=== PATIENT | female | born 1980 | race American Indian/Alaskan Native ===

== ENCOUNTER 2016-09-18 18:06 | Inpatient (IN) | payer BC, MEDICAID ==
--- NOTE | 2016-09-18 19:03 | ED PDOC ---
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 Intentional overdose due to suicidal thoughts. No complains now. Past Medical History Reviewed: Historical Data, Nursing Documentation, Vital Signs Vital Signs: Last Vital Signs Temp 97.8 F 09/18/16 18:10 Pulse 68 09/18/16 18:10 Resp 18 09/18/16 18:10 BP 135/80 09/18/16 18:10 Pulse Ox 98 09/18/16 18:10 - Medical History PMH: No Chronic Diseases - Surgical History Surgical History: No Surg Hx - Family History Family History: States: No Known Family Hx - Home Medications Home Medications: Ambulatory Orders Medication Instructions Recorded No Known Home Med 09/18/16 - Allergies Allergies/Adverse Reactions: Allergies Allergy/AdvReac Type Severity Reaction Status Date / Time No Known Allergies Allergy Verified 09/18/16 18:59 Review of Systems ROS Statement: Except As Marked, All Systems Reviewed And Found Negative Constitutional: Negative for: Fever Cardiovascular: Negative for: Chest Pain Respiratory: Negative for: Cough Gastrointestinal: Negative for: Abdominal Pain Genitourinary Female: Negative for: Dysuria Physical Exam - Reviewed Nursing Documentation Reviewed: Yes Vital Signs Reviewed: Yes - Physical Exam Appears: Positive for: Well, Non-toxic, No Acute Distress Skin: Positive for: Warm, Dry. Negative for: Jaundice Eye Exam: Positive for: EOMI Cardiovascular/Chest: Positive for: Regular Rate, Rhythm. Negative for: Tachycardia Respiratory: Positive for: Normal Breath Sounds. Negative for: Wheezing Gastrointestinal/Abdominal: Positive for: Soft. Negative for: Tenderness Extremity: Positive for: Normal ROM Neurologic/Psych: Positive for: Alert, Oriented - Laboratory Results Result Diagrams: 09/19/16 05:20 09/19/16 14:30 - ECG O2 Sat by Pulse Oximetry: 98 Medical Decision Making Medical Decision Making: Impression Intentional overdose, suicidal attempt --Labs ==PCC --Observation --Crisis eval Disposition - Clinical Impression Clinical Impression: Acetaminophen overdose, Suicide attempt by acetaminophen overdose - Patient ED Disposition Is Patient to be Admitted: Transfer of Care Counseled Patient/Family Regarding: Studies Performed, Diagnosis - Disposition Disposition: Transfer of Care Disposition Time: 19:00 Condition: FAIR Patient Signed Over To: Bob Kennedy
[2016-09-18 19:19] LABS: BASO % 0.6 % (0.0-2.0); EOS % 0.4 % (0.0-4.0); HEMATOCRIT 36.3 % (34.0-47.0); LYMPH # 1.3 K/uL (1.0-4.3); MEAN CELL VOLUME 90.9 fl (81.0-99.0); MEAN CORPUSCULAR HEMOGLOBIN 29.5 pg (27.0-31.0); MEAN CORPUSCULAR HGB CONC 32.5 g/dL (33.0-37.0); MEAN PLATELET VOLUME 8.3 fl (7.2-11.7); MONO # 0.3 K/uL (0.0-0.8); MONO % 6.6 % (0.0-10.0); NEUT # 3.1 K/uL (1.8-7.0); NEUT % 64.4 % (50.0-75.0); RED CELL DISTRIBUTION WIDTH 12.9 % (11.5-14.5); WHITE BLOOD COUNT 4.8 K/uL (4.8-10.8)
[2016-09-18 19:29] LABS: ALB/GLOB RATIO 1.2 (1.0-2.1); ALCOHOL SERUM < 10 mg/dl (0-10); ALKALINE PHOSPHATASE 92 U/L (38-126); ALT/SGPT 26 U/L (9-52); AST/SGOT 22 U/L (14-36); BILIRUBIN,TOTAL 0.3 mg/dl (0.2-1.3); BLOOD UREA NITROGEN 6 mg/dl (7-17); CALCIUM 9.4 mg/dL (8.4-10.2); CARBON DIOXIDE 27 mmol/L (22-30); CHLORIDE 103 mmol/L (98-107); GFR AFRICAN-AMERICAN > 60; GLUCOSE,RANDOM 119 mg/dL (65-105); POTASSIUM 4.3 MMOL/L (3.6-5.0); SODIUM 143 mmol/l (132-148); TOTAL PROTEIN 7.8 G/DL (6.3-8.2)
[2016-09-18] MEDS ORDERED: Acetylcysteine 6 GM/30 ML IV ONE (19:43)
[2016-09-18] MEDS ORDERED: ACETYLCYSTEINE IVPB STA (19:43)
[2016-09-18] MEDS ORDERED: DEXTROSE 5% IVPB STA (19:43)
[2016-09-18] MEDS ORDERED: WATER IVPB STA (19:43)
[2016-09-18] MEDS ORDERED: Sodium Chloride 0.9% 1,000 ML IV STA (19:50)
--- NOTE | 2016-09-18 19:50 | ED PDOC ---
- Laboratory Results Result Diagrams: 09/18/16 19:12 09/18/16 19:12 - ECG O2 Sat by Pulse Oximetry: 98 - Critical Care Total Time (In Min): 35 Medical Decision Making Medical Decision Making: Time: 1899 Patient signed out by Dr. Adams pending labs, crisis and disposition Time: 1914 Lab results reviewed: Acetaminophen elevated at 41 indicative of acetaminophen toxicity. Case re-discussed with poison control who recommends a 21 hour regimen of Acedote. Discussed case with Dr. Bill for ICU admission and Dr. Villagomez for admission orders. Plan: -- Acetaminophen times -- Hepatic Function -- PT/PTT -- Acetylcystein IVPB -- NSF -- Placed on 1:1 Scribe Attestation: Documented by Shayla Caban acting as a scribe for Lorna Kennedy MD MD Scribe Attestation: All medical record entries made by the Scribe were at my direction and personally dictated by me. I have reviewed the chart and agree that the record accurately reflects my personal performance of the history, physical exam, medical decision making, and the department course for this patient. I have also personally directed, reviewed, and agree with the discharge instructions and disposition. Disposition Discussed With : Isaias Villagomez (Dr Bill) - Clinical Impression Clinical Impression: Acetaminophen overdose - POA Present On Arrival: None - Disposition Disposition: Admitted as In-Patient Disposition Time: 20:33 Condition: FAIR
--- NOTE | 2016-09-18 20:34 | CP.PCM.CON ---
History of Present Illness - History of Present Illness History of Present Illness: CC: overdose, suicide attempt HPI: This is a 36 y/o female without any diagnosed chronic medical conditions who comes in of her own volition after having taken several hydrocodone pills. She states she is uncertain if they contain acetaminophen. She states she had ' 8 pills' today at around '11 or 12', and then 'got nauseated and threw some of it up'. But she still wasn't feeling well so she came in to the hospital. Denies any other symptoms. States that various life stressors caused her to feel overwhelmed and take the pills. Denies prior history of SA. Denies SI at this time, but still feels depressed. ROS: 14 systems reviewed, negative other than HPI. MHx/SHx: 'some issue with uterus', but otherwise no medical conditions Allergies: NKDA Medications: as per med rec; ?hydrocodone Family Hx: Reviewed, no relevant findings Social Hx: Unclear living situation, denies sig EtOH use, occasional tobacco, no other substances aside Past Patient History - Past Social History Smoking Status: socially - PSYCHIATRIC Hx Substance Use: No - SURGICAL HISTORY Hx Surgeries: Yes Other/Comment: breast inplant - ANESTHESIA Hx Anesthesia: Yes Meds Allergies/Adverse Reactions: Allergies Allergy/AdvReac Type Severity Reaction Status Date / Time No Known Allergies Allergy Verified 09/18/16 18:59 - Medications Medications: Current Medications Acetylcysteine 9.18 gm/ (Dextrose) 245.9 mls @ 200 mls/hr IVPB STAT STA Stop: 09/18/16 20:42 Sodium Chloride (Sodium Chloride 0.9%) 1,000 mls @ 1,000 mls/hr IV .Q1H STA Stop: 09/18/16 20:49 Acetylcysteine 3.06 gm/ (Dextrose) 515.3 mls @ 125 mls/hr IVPB STAT STA Stop: 09/19/16 00:12 Acetylcysteine 6.12 gm/ (Dextrose) 1,030.6 mls @ 62.5 mls/hr IVPB STAT STA Stop: 09/19/16 12:36 Sodium Chloride (Sodium Chloride 0.9%) 1,000 mls @ 100 mls/hr IV .Q10H SANDRA Stop: 09/20/16 02:29 Physical Exam - Constitutional Appears: No Acute Distress - Head Exam Head Exam: ATRAUMATIC, NORMOCEPHALIC - Eye Exam Eye Exam: EOMI, PERRL - ENT Exam ENT Exam: Mucous Membranes Moist - Neck Exam Neck exam: Positive for: Full Rom - Respiratory Exam Respiratory Exam: Clear to Auscultation Bilateral, NORMAL BREATHING PATTERN - Cardiovascular Exam Cardiovascular Exam: REGULAR RHYTHM, +S1, +S2 - GI/Abdominal Exam GI & Abdominal Exam: Normal Bowel Sounds, Soft - Extremities Exam Extremities exam: Positive for: full ROM, normal inspection - Neurological Exam Neurological exam: Alert, CN II-XII Intact, Oriented x3 - Psychiatric Exam Psychiatric exam: Normal Affect, Normal Mood - Skin Skin Exam: Dry, Warm Results - Vital Signs Recent Vital Signs: Last Vital Signs Temp 97.8 F 09/18/16 18:10 Pulse 52 L 09/18/16 20:07 Resp 14 09/18/16 20:07 BP 99/68 L 09/18/16 20:07 Pulse Ox 100 09/18/16 20:07 - Labs Result Diagrams: 09/18/16 19:12 09/18/16 19:12 Labs: Laboratory Results - last 24 hr 09/18/16 19:12 WBC 4.8 RBC 3.99 Hgb 11.8 L Hct 36.3 MCV 90.9 MCH 29.5 MCHC 32.5 L RDW 12.9 Plt Count 258 MPV 8.3 Neut % (Auto) 64.4 Lymph % (Auto) 28.0 [place] % (Auto) 6.6 Eos % (Auto) 0.4 Baso % (Auto) 0.6 Neut # 3.1 Lymph # 1.3 [place] # 0.3 Eos # 0.0 Baso # 0.0 Sodium 143 Potassium 4.3 Chloride 103 Carbon Dioxide 27 Anion Gap 17 BUN 6 L Creatinine 0.9 Est GFR ( Amer) > 60 Est GFR (Non-Af Amer) > 60 Random Glucose 119 H Calcium 9.4 Total Bilirubin 0.3 AST 22 ALT 26 Alkaline Phosphatase 92 Total Protein 7.8 Albumin 4.3 Globulin 3.6 Albumin/Globulin Ratio 1.2 Salicylates < 1.0 Urine Opiates Screen Positive H Urine Methadone Screen Negative Acetaminophen 41.0 H Ur Barbiturates Screen Negative Ur Phencyclidine Scrn Negative Ur Amphetamines Screen Negative U Benzodiazepines Scrn Negative U Oth Cocaine Metabols Negative U Cannabinoids Screen Positive H Alcohol, Quantitative < 10 Assessment & Plan (1) Suicide attempt by acetaminophen overdose Assessment and Plan: 36 y/o female with SA via possible hydrocodone + APAP pill-- APAP level mildly elevated. -Admit to ICU -1:1 obs -Acetadote per poison control -f/u LFT/APAP levels at 23 hrs and in AM -Psych consult in AM -IVF, clear liq -DVT PPx with SCDs Status: Acute
[2016-09-18] MEDS ORDERED: ACETYLCYSTEINE IVPB ONE (22:00)
[2016-09-18] MEDS ORDERED: DEXTROSE 5% IVPB ONE (22:00)
[2016-09-18] MEDS ORDERED: WATER IVPB ONE (22:00)
--- NOTE | 2016-09-18 22:13 | RAD ---
EXAM: XR Chest, 1 View CLINICAL HISTORY: 36 years old, female; Signs and symptoms; Other: Overdose; Additional info: Admit TECHNIQUE: Frontal view of the chest. EXAM DATE/TIME: 09/18/2016 8:33 PM COMPARISON: No relevant prior studies available. FINDINGS: LUNGS: Lungs are hyperinflated, suggestive of underlying COPD. Recommend clinical correlation. Hazy density is seen projected over the lung bases bilaterally, which is symmetric in appearance, and is felt to be related to overlying soft tissues. No definite focal consolidation/infiltrate is seen in the lungs. No evidence of diffuse pulmonary vascular congestion. PLEURAL SPACE: No pneumothorax or pleural effusions seen. HEART: Heart does not appear significantly enlarged. MEDIASTINUM: Ringlike metallic density is seen projected over the upper mediastinum in the midline, which is most likely related to the patient's clothing. Recommend clinical correlation. BONES/JOINTS: No acute bony abnormality visualized. IMPRESSION: - No radiographic evidence of acute disease in the chest. - See above for remaining findings.
[2016-09-18] MEDS: Sodium Chloride 0.9% 1,000 ML IV SCH (22:33)
[2016-09-19] MEDS ORDERED: ACETYLCYSTEINE IVPB ONE (02:10)
[2016-09-19] MEDS ORDERED: DEXTROSE 5% IVPB ONE (02:10)
[2016-09-19] MEDS ORDERED: WATER IVPB ONE (02:10)
[2016-09-19 03:36] LABS: BILIRUBIN,TOTAL 0.3 mg/dl (0.2-1.3)
[2016-09-19 03:37] LABS: ALB/GLOB RATIO 1.1 (1.0-2.1); TOTAL PROTEIN 6.9 G/DL (6.3-8.2)
[2016-09-19] MEDS: Sodium Chloride 0.9% 1,000 ML IV SCH (06:02)
[2016-09-19 06:38] LABS: BASO % 0.4 % (0.0-2.0); EOS % 0.5 % (0.0-4.0); HEMATOCRIT 31.8 % (34.0-47.0); LYMPH # 1.6 K/uL (1.0-4.3); LYMPH % 37.9 % (20.0-40.0); MEAN CELL VOLUME 89.7 fl (81.0-99.0); MEAN CORPUSCULAR HEMOGLOBIN 29.6 pg (27.0-31.0); MEAN CORPUSCULAR HGB CONC 33.1 g/dL (33.0-37.0); MEAN PLATELET VOLUME 8.5 fl (7.2-11.7); MONO # 0.4 K/uL (0.0-0.8); NEUT # 2.1 K/uL (1.8-7.0); NEUT % 52.2 % (50.0-75.0); NRBC % 0.1 % (0.0-0.0); RED CELL DISTRIBUTION WIDTH 13.3 % (11.5-14.5); WHITE BLOOD COUNT 4.1 K/uL (4.8-10.8)
[2016-09-19 06:44] LABS: ALB/GLOB RATIO 0.9 (1.0-2.1); ALKALINE PHOSPHATASE 47 U/L (38-126); ALT/SGPT 27 U/L (9-52); AST/SGOT 17 U/L (14-36); BILIRUBIN,TOTAL 0.2 mg/dl (0.2-1.3); BLOOD UREA NITROGEN 4 mg/dl (7-17); CALCIUM 8.3 mg/dL (8.4-10.2); CARBON DIOXIDE 24 mmol/L (22-30); CHLORIDE 106 mmol/L (98-107); GFR AFRICAN-AMERICAN > 60; GLUCOSE,RANDOM 115 mg/dL (65-105); POTASSIUM 3.9 MMOL/L (3.6-5.0); SODIUM 141 mmol/l (132-148); TOTAL PROTEIN 6.1 G/DL (6.3-8.2)
[2016-09-19 06:52] LABS: PARTIAL THROMBOPLASTIN TIME 28.7 SECONDS (23.3-32.5)
--- NOTE | 2016-09-19 07:55 | CP.CCUPN ---
CCU Subjective - Physician Review Subjective (Free Text): EDUCATIONAL PSYCHOLOGIST PROGRESS NOTE Patient examined, interim events reviewed: Sleeping, easily arousable, under 1:1 supervision, denies any SI now, denies any headaches, dizziness, focal weakness, CP, SOB, N/V, nor any other new GI or Neuro symptoms. Afebrile, BP 100/70, HR 58, RR 14, SPo2 97% on NC. 12H I/Os = 1038/1200ml ROS: as above, no new pertinent negs or positives on 12 system review. PMFSH: all nursing and historical notes reviewed, no new pertinent data relevant to current problems. No other distress noted: EXAM- HEENT: no icterus, pupils equal and reactive NECK: no visible JVD, supple, carotids equal upstroke bilat/no bruits CHEST: decreased BS bases, no wheezes audible HEART: regular, distant, S1S2, no murmur audible, no rubs. ABD: soft, no increased distention, no focal tenderness, no HSM. BS hypoactive , no abdominal bruits or other masses. EXT: no leg edema, no peripheral/ digital cyanosis, no calf tenderness or palpable cords, distal pulses intact and symmetrical NEURO: no gross focal motor deficits SKIN: no rashes LABS: WBC= 4.1 HGB= 10.5 PLTs= 228K Na= 141 K= 3.9 HCO3= 24 BUN/Cr= 4/0.6 IC=574 ASSESSMENT: 1. Multiple Drug component ingestion with Narcotics and Acetaminophen. 2. Suicide Attempt 3. Chronic Disease Anemia PLAN: 1. No specific signs of Acetaminophen toxicity impact on LFTs. Presently on last portion of Acetadote regimen (16h infusion) to be completed by approx. 6PM today. 2. Repeat LFTs and Coags later today. So far, LFTs are normal, repeat Acetaminophen level has normalized. 3. Psychiatric eval pending , maintenance of 1:1 unless cleared by Psych. 4. Stable for stepdown bed for further observation and mgmt.
[2016-09-19 08:00] VITALS: PULSE 56; RESP 16; O2SAT 98
--- NOTE | 2016-09-19 10:13 | CP.PCM.CON ---
History of Present Illness - History of Present Illness History of Present Illness: Psychiatry consult called for evaluated of overdose CC: "I took 4 tylenol PM and felt unwell" HPI: 36 y/o female, no past psychiatric history, no h/o suicide attempts, without any diagnosed chronic medical conditions who comes in of her own volition after having taken 4 tylenol PM pill. She reports that she felt she did not feel well so she decided to go to the ER. She denies depression/anxiety /jonathan/psychosis/paranoia delusions. She reports that she did not attempt suicide. 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 Patient understands that risk of taking excessive medications. ROS: 14 systems reviewed, negative other than HPI. PPHx: No h/o mental illness, hospitalizations, treatment or medications. MHx/SHx: 'some issue with uterus', but otherwise no medical conditions Allergies: NKDA Family Hx: Reviewed, no relevant findings, no family h/o mental illness Social Hx: Lives along with daughter, engaged. +college degree. Denies drugs/ etoh/cig. 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 MSE: A + O x 3, good eye contact, speech normal, looks stated age, mood "good", affect-full range/pleasant, no hallucinations, thought process- linear and goal directed. no suicidal or homicidal ideation/plan/intent. Insight/judgment good. Impression: 36 yo female w/ no past psychiatric history, presents s/p taking excessive tylenol PM due to insomnia. Patient denies suicide attempt or depression. Patient likely has adjustment disorder due to various life stressors, but she is not an acute danger to herself or others at this time. -No acute inpatient psychiatric admission needed -No 1:1 needed at this time -Can discharge patient to home when she is medically stable -No acute psychotropic medications indicated -Call with further questions, Dr. Juarez [phone] Past Patient History - Past Medical History & Family History Past Medical History?: Yes - Past Social History Smoking Status: Current Some Days Smoker - MUSCULOSKELETAL/RHEUMATOLOGICAL Hx Falls: No - PSYCHIATRIC Hx Substance Use: Yes (pt reports taking 8 hydrocodone) - SURGICAL HISTORY Hx Surgeries: Yes Other/Comment: breast inplant - ANESTHESIA Hx Anesthesia: Yes Meds Allergies/Adverse Reactions: Allergies Allergy/AdvReac Type Severity Reaction Status Date / Time No Known Allergies Allergy Verified 09/18/16 18:59 - Medications Medications: Current Medications Acetylcysteine 6.12 gm/ (Dextrose) 1,030.6 mls @ 62.5 mls/hr IVPB ONCE ONE Stop: 09/19/16 18:39 Last Admin: 09/19/16 03:35 Dose: 62.5 mls/hr Sodium Chloride (Sodium Chloride 0.9%) 1,000 mls @ 100 mls/hr IV .Q10H SANDRA Stop: 09/20/16 02:29 Last Admin: 09/19/16 06:02 Dose: 100 mls/hr Ondansetron HCl (Zofran Inj) 4 mg IVP Q6 PRN PRN Reason: Nausea/Vomiting Last Admin: 09/18/16 22:43 Dose: 4 mg Results - Vital Signs Recent Vital Signs: Last Vital Signs Temp 97.6 F 09/19/16 07:58 Pulse 56 L 09/19/16 07:58 Resp 16 09/19/16 07:58 BP 101/57 L 09/19/16 07:58 Pulse Ox 98 09/19/16 07:58 - Labs Result Diagrams: 09/19/16 05:20 09/19/16 05:20 Labs: Laboratory Results - last 24 hr 09/19/16 09/19/16 03:14 05:20 WBC 4.1 L RBC 3.55 L Hgb 10.5 L Hct 31.8 L MCV 89.7 MCH 29.6 MCHC 33.1 RDW 13.3 Plt Count 228 MPV 8.5 Neut % (Auto) 52.2 Lymph % (Auto) 37.9 [place] % (Auto) 9.0 Eos % (Auto) 0.5 Baso % (Auto) 0.4 Neut # 2.1 Lymph # 1.6 [place] # 0.4 Eos # 0.0 Baso # 0.0 PT 12.2 H INR 1.17 H APTT 28.7 Sodium 141 Potassium 3.9 Chloride 106 Carbon Dioxide 24 Anion Gap 16 BUN 4 L Creatinine 0.6 L Est GFR ( Amer) > 60 Est GFR (Non-Af Amer) > 60 Random Glucose 115 H Calcium 8.3 L Total Bilirubin 0.3 0.2 Direct Bilirubin 0.1 AST 21 17 ALT 22 27 Alkaline Phosphatase 34 L D 47 Total Protein 6.9 6.1 L Albumin 3.6 2.9 L Globulin 3.3 3.2 Albumin/Globulin Ratio 1.1 0.9 L Acetaminophen < 10.0 L < 10.0 L
[2016-09-19 10:42] VITALS: BP 100/65
--- NOTE | 2016-09-19 10:57 | CP.PCM.DIS ---
Provider - Provider Date of Admission: 09/18/16 20:14 Attending physician: Isaias Villagomez MD Time Spent in preparation of Discharge (in minutes): 30 Diagnosis - Discharge Diagnosis (1) Acetaminophen overdose Status: Acute Comment: pt also has carbinoids and opiates in her system despite denial of suicidal ideation/drug use. she has been cleared for d/c home by [facility] and will follow up with her pmd. her fiance is at bedside and will be responsible for her wellbeing today Hospital Course - Lab Results Lab Results: Most Recent Lab Values WBC 4.1 K/uL (4.8-10.8) L 09/19/16 05:20 RBC 3.55 Mil/uL (3.80-5.20) L 09/19/16 05:20 Hgb 10.5 g/dL (12.0-16.0) L 09/19/16 05:20 Hct 31.8 % (34.0-47.0) L 09/19/16 05:20 MCV 89.7 fl (81.0-99.0) 09/19/16 05:20 MCH 29.6 pg (27.0-31.0) 09/19/16 05:20 MCHC 33.1 g/dL (33.0-37.0) 09/19/16 05:20 RDW 13.3 % (11.5-14.5) 09/19/16 05:20 Plt Count 228 K/uL (130-400) 09/19/16 05:20 MPV 8.5 fl (7.2-11.7) 09/19/16 05:20 Neut % (Auto) 52.2 % (50.0-75.0) 09/19/16 05:20 Lymph % (Auto) 37.9 % (20.0-40.0) 09/19/16 05:20 [place] % (Auto) 9.0 % (0.0-10.0) 09/19/16 05:20 Eos % (Auto) 0.5 % (0.0-4.0) 09/19/16 05:20 Baso % (Auto) 0.4 % (0.0-2.0) 09/19/16 05:20 Neut # 2.1 K/uL (1.8-7.0) 09/19/16 05:20 Lymph # 1.6 K/uL (1.0-4.3) 09/19/16 05:20 [place] # 0.4 K/uL (0.0-0.8) 09/19/16 05:20 Eos # 0.0 K/uL (0.0-0.7) 09/19/16 05:20 Baso # 0.0 K/uL (0.0-0.2) 09/19/16 05:20 PT 12.2 SECONDS (9.6-11.2) H 09/19/16 05:20 INR 1.17 (0.92-1.08) H 09/19/16 05:20 APTT 28.7 SECONDS (23.3-32.5) 09/19/16 05:20 Sodium 141 mmol/l (132-148) 09/19/16 05:20 Potassium 3.9 MMOL/L (3.6-5.0) 09/19/16 05:20 Chloride 106 mmol/L (98-107) 09/19/16 05:20 Carbon Dioxide 24 mmol/L (22-30) 09/19/16 05:20 Anion Gap 16 (10-20) 09/19/16 05:20 BUN 4 mg/dl (7-17) L 09/19/16 05:20 Creatinine 0.6 mg/dL (0.7-1.2) L 09/19/16 05:20 Est GFR ( Amer) > 60 09/19/16 05:20 Est GFR (Non-Af Amer) > 60 09/19/16 05:20 Random Glucose 115 mg/dL (65-105) H 09/19/16 05:20 Calcium 8.3 mg/dL (8.4-10.2) L 09/19/16 05:20 Total Bilirubin 0.2 mg/dl (0.2-1.3) 09/19/16 05:20 Direct Bilirubin 0.1 mg/ml (0.0-0.4) 09/19/16 03:14 AST 17 U/L (14-36) 09/19/16 05:20 ALT 27 U/L (9-52) 09/19/16 05:20 Alkaline Phosphatase 47 U/L (38-126) 09/19/16 05:20 Total Protein 6.1 G/DL (6.3-8.2) L 09/19/16 05:20 Albumin 2.9 g/dL (3.5-5.0) L 09/19/16 05:20 Globulin 3.2 gm/dL (2.2-3.9) 09/19/16 05:20 Albumin/Globulin Ratio 0.9 (1.0-2.1) L 09/19/16 05:20 Salicylates < 1.0 mg/dl 09/18/16 19:12 Urine Opiates Screen Positive (NEGATIVE) H 09/18/16 19:12 Urine Methadone Screen Negative (NEGATIVE) 09/18/16 19:12 Acetaminophen < 10.0 ug/ml (10.0-30.0) L 09/19/16 05:20 Ur Barbiturates Screen Negative (NEGATIVE) 09/18/16 19:12 Ur Phencyclidine Scrn Negative (NEGATIVE) 09/18/16 19:12 Ur Amphetamines Screen Negative (NEGATIVE) 09/18/16 19:12 U Benzodiazepines Scrn Negative (NEGATIVE) 09/18/16 19:12 U Oth Cocaine Metabols Negative (NEGATIVE) 09/18/16 19:12 U Cannabinoids Screen Positive (NEGATIVE) H 09/18/16 19:12 Alcohol, Quantitative < 10 mg/dl (0-10) 09/18/16 19:12 Discharge Exam - Head Exam Head Exam: ATRAUMATIC, NORMOCEPHALIC Discharge Plan - Follow Up Plan Condition: FAIR Disposition: HOME/ ROUTINE
--- NOTE | 2016-09-19 11:01 | HP ---
The patient is a 36-year-old female who was admitted via the Emergency Room because of drug overdose. She indicated that she had taken extra Tylenol PM just because she could not sleep. Denies suicidal ideation. She was admitted to the intensive care unit and has been monitored overnight. She has also been seen by the psychiatrist and was cleared for discharge. PAST MEDICAL HISTORY: Noncontributory. SOCIAL HISTORY: She does not smoke and denies drug use or alcohol use. 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 PHYSICAL EXAMINATION: GENERAL: The patient is alert and oriented. VITAL SIGNS: Stable. HEENT: Pupils equal, react to light and accommodation. JVP flat. Mouth clear. LUNGS: Clear. HEART: Regular. No murmurs or gallops. ABDOMEN: Soft, nontender, no organomegaly. EXTREMITIES: Shows no edema or cyanosis. CENTRAL NERVOUS SYSTEM: Grossly intact. The patient is alert and oriented with no acute neurologic deficits. LABORATORY DATA: Already been reviewed. IMPRESSION: Drug overdose, no evidence of suicidal ideation or homicidal ideation.The pt denies further drug use despite having opiates and carbinoisa in her drug screen. PLAN: To discharge patient with her boyfriend (wanda). She will follow up with her primary care physician. Isaias Villagomez MD cc: [phone] TT: 09/19/2016 11:01:05 en MTDD
[2016-09-19 12:03] VITALS: TEMP 98.4
[2016-09-19 14:45] LABS: ALKALINE PHOSPHATASE 60 U/L (38-126); ALT/SGPT 27 U/L (9-52); AST/SGOT 20 U/L (14-36); BILIRUBIN,TOTAL 0.3 mg/dl (0.2-1.3); BLOOD UREA NITROGEN 4 mg/dl (7-17); CALCIUM 8.9 mg/dL (8.4-10.2); CARBON DIOXIDE 24 mmol/L (22-30); CHLORIDE 108 mmol/L (98-107); GFR AFRICAN-AMERICAN > 60; GLUCOSE,RANDOM 98 mg/dL (65-105); POTASSIUM 3.7 MMOL/L (3.6-5.0); SODIUM 145 mmol/l (132-148); TOTAL PROTEIN 7.2 G/DL (6.3-8.2)
--- NOTE | 2016-09-19 18:26 | CARD ---
APPROVED REPORT EKG Measurement Heart [id number] CO [id number] <Conclusion> Sinus bradycardia with sinus arrhythmia with occasional premature ventricular complexes Possible Left atrial enlargement Nonspecific T wave abnormality Abnormal ECG
== END 2016-09-19 15:02 | disposition home or self-care (01) | DRG 918 ==
LOC: H.ER 18:06 → H.ERHOLD 20:14 → H.ICU/CCU 23:30
PROVIDERS: ADMIT Internal Medicine Pulmonary Disease; ATTEND Internal Medicine Pulmonary Disease
DX: T39.1X2A Poisoning by 4-Aminophenol derivatives, intentional self-harm, initial encounter (principal); F43.29 Adjustment disorder with other symptoms; F11.10 Opioid abuse, uncomplicated; D64.89 Other specified anemias; F17.200 Nicotine dependence, unspecified, uncomplicated; Y92.9 Unspecified place or not applicable